=== PATIENT | male | born 1965 | race African-American/Black ===

== ENCOUNTER → 2017-07-13 | Outpatient (CLI) | payer OTHER ==
[~2017-07-13] MED LIST: ALBUTEROL17 GM INH; AUGMENTIN875 MG PO; BACTRIM DS TABL1 TA1 PO; BENZONATATE PO; BLOOD PRESSURE MED; CHOLESTEROL MED; DOXYCYCLINE PO; DOXYCYCLINE150 MG PO; ECOTRIN81 M1 PO; FISH OIL300 MG; FLEXERIL10 M1 PO; KEFLEX500 M1 PO; MORGIDOX100 MG PO; NO MEDICATIONS; PHENERGAN PO; PREDNISONE PO; ROBITUSSIN A-C10 ML PO; TYLENOL #3 PO; VOLTAREN75 MG PO
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
== END | disposition home or self-care (01) ==
LOC: SRAD 13:30
DX: M47.817 Spondylosis without myelopathy or radiculopathy, lumbosacral region (principal)
CPT/HCPCS: 72100